=== PATIENT | male | born 1985 | race Caucasian/White ===

== ENCOUNTER 2023-01-05 12:16 | Outpatient (CLI) | payer OTHER | END 2023-01-05 12:17 | disposition home or self-care (01) | LOC: TBSIIMAG 12:16 → SCSMRI 12:17 | PROVIDERS: ATTEND Family Medicine | DX: M47.816 Spondylosis without myelopathy or radiculopathy, lumbar region (principal); M51.9 Unspecified thoracic, thoracolumbar and lumbosacral intervertebral disc disorder; M47.817 Spondylosis without myelopathy or radiculopathy, lumbosacral region | CPT/HCPCS: 72100; 72148 ==